=== PATIENT | female | born 1995 | race Hispanic/Latino ===

== ENCOUNTER 2019-05-09 21:21 | Emergency (ER) | payer OTHER ==
[~2019-05-09] VITALS: Ht 157.5 cm; Wt 66.7 kg
--- OUTSIDE RECORDS SUMMARY | 2019-05-09 21:24 | XMS REPORT ---
Author Author [facility] Address Unknown Phone Unavailable Care Team Providers Care Service Dismantler Name Role Phone Unavailable Unavailable Payers Payer Name Policy Type Policy Number Effective Date Expiration Date Problems This patient has no known problems. Allergies, Adverse Reactions, Alerts Allergy Name Allergy Type Status Severity Reaction(s) Onset Date Inactive Date Treating Clinician Comments No Known Allergies DA Active U 2019-05-05 00:00:00 Medications This patient has no known medications. Results Test Description Test Time Test Comments Text Results Atomic Results Result Comments BASIC METABOLIC PANEL 2019-05-06 00:34:00 SODIUM (test code=NA) 138 mmol/L 136-145 POTASSIUM (test code=K) 4.0 mmol/L 3.5-5.1 CHLORIDE (test code=CL) 103.0 mmol/L 98-107 CARBON DIOXIDE (test code=CO2) 27.0 mmol/L 21-32 ANION GAP (test code=GAP) 12.0 10-20 GLUCOSE (test code=GLU) 124 mg/dL 74-106 BLOOD UREA NITROGEN (test code=BUN) 8 mg/dL 7-18 GLOMERULAR FILTRATION RATE (test code=GFR) > 60 mL/min >=60 Estimated GFR by using Modified MDRD formula.Chronic kidney disease is defined as either kidney damageor GFR <60 mL/min/1.73 m2 for >3 months. CREATININE (test code=CREAT) 0.60 mg/dL 0.55-1.02 Note change in reference range due to change in reagent. BUN/CREATININE RATIO (test code=BUN/CREA) 13.0 10-20 CALCIUM (test code=CA) 9.3 mg/dL 8.5-10.1 HCG SERUM [id number] 00:34:00* Test Item Value Reference Range Comments HCG SERUM BETA (test code=HCG) 10096.0 mIU/mL 0-3 Interfering substances present in the serum of somepatients may cause a false-positive result in this assay.Questionable elevations in serum hCG should be confirmedwith a urine hCG. Suspected Trophoblastic Neoplasms shouldnot be diagnosed based on serun hCG/beta hCG alone. Theymust be confirmed by clinical history and tissue diagnosis.INTERPRETATION:B-HCG LEVELS <5 SHOULD BE CONSIDERED "NEGATIVE." *WHEN BODERLINE RESULTS ARE ENCOUNTERED,PATIENT SAMPLESSHOULD BE REDRAWN 48 HOURS. 0-1 WEEKS AFTER CONCEPTION 5-50 MIU/ML1-2 WEEKS AFTER CONCEPTION 50-500 MIU/ML2-3 WEEKS AFTER CONCEPTION 100 -5,000 MIU/ML3-4 WEEKS AFTER CONCEPTION 500-10,000 MIU/ML4-5 WEEKS AFTER CONCEPTION 1000 -50,000 MIU/ML5-6 WEEKS AFTER CONCEPTION 10,000-100,000 MIU/ML6-8 WEEKS AFTER CONCEPTION 15,000- 200,000 MIU/ML2-3 MONTHS AFTER CONCEPTION 10,000-100,000 MIU/ML - DUP AB/PEL/SC [id number] 23:34:00 Name: NATALIIA MUNOZ [facility] : 1995 Age/S: 24 / F [address] [facility] Unit #: [id number] Loc: [place] [address] Phys: Yariel Hunter SOFTWARE VERIFICATION ENGINEER Acct: [id number] Dis Date: Status: REG ER PHONE #: [phone] Exam Date: 05/05/2019 2300 FAX #: [phone] Reason: PELVIC PAIN EXAMS: CPT CODE: [id number] DUP AB/PEL/SC COMP 13283 HISTORY: Vaginal bleeding Location: C3 FINDINGS: Transabdominal and transvaginal pelvic ultrasound images are provided. Doppler interrogation of pelvic structures was performed with color flow, grayscale, and spectral analysis. There is asymmetry in demonstrated measuring 7 weeks 6 days. cardiac activity is present heart rate of 166. Left ovary is demonstrated with normal ovarian flow. The right ovary is not visualized. Small amount of free fluid is noted posteriorly. IMPRESSION: 1. 7 week 6 day intrauterine with normal cardiac activity. 2. Nonvisualization of the right ovary. at 2334 Reported and signed by: Eleazar Ruby MD CC: Evelina Santoro MD; Yariel Hunter NP Technologist: MALI MCBRIDE RDMS Trnscb Date/Time: 05/05/2019 (233) [email or web address] Orig Print D/T: S: 05/05/2019 (2337) Probe: PAGE 1 Signed Report - US PREG 1ST TRIMTR 2019-05-05 23:34:00 Name: NATALIIA MUNOZ [facility] : 1995 Age/S: 24 / F [address] Unit #: [id number] Loc: [place] [address] Phys: Yariel Hunter NP Acct: [id number] Dis Date: Status: REG ER PHONE #: [phone] Exam Date: 05/05/2019 230 FAX #: [phone] Reason: VAGINAL BLEEDING/PELVIC PAIN EXAMS: CPT CODE: [id number] US PREG 1ST TRIMTR 33421 HISTORY: Vaginal bleeding Location: C3 FINDINGS: Transabdominal and transvaginal pelvic ultrasound images are provided. Doppler interrogation of pelvic structures was performed with color flow, grayscale, and spectral analysis. There is asymmetry in demonstrated measuring 7 weeks 6 days. cardiac activity is present heart rate of 166. Left ovary is demonstrated with normal ovarian flow. The right ovary is not visualized. Small amount of free fluid is noted posteriorly. IMPRESSION: 1. 7 week 6 day intrauterine with normal cardiac activity. 2. Nonvisualization of the right ovary. at 2334 Reported and signed by: Eleazar Ruby MD CC: Evelina Santoro MD; Yariel Hunter NP Technologist: MALI MCBRIDE RDMS Trnscb Date/Time: 05/05/2019 (2334) [email or web address] Orig Print D/T: S: 05/05/2019 (2337) Probe: PAGE 1 Signed Report - US PREG UT [id number] 23:34:00 Name: NATALIIA MUNOZ [facility] : 1995 Age/S: 24 / F [address] Unit #: [id number] Loc: [place] [address] Phys: Yariel Hunter SOFTWARE VERIFICATION ENGINEER Acct: [id number] Dis Date: Status: REG ER PHONE #: [phone] Exam Date: 05/05/2019 2308 FAX #: [phone] Reason: PELVIC PAIN EXAMS: CPT CODE: [id number] US PREG UT TRANSVAGINAL 02623 HISTORY: Vaginal bleeding Location: C3 FINDINGS: Transabdominal and transvaginal pelvic ultrasound images are provided. Doppler interrogation of pelvic structures was performed with color flow, grayscale, and spectral analysis. There is asymmetry in demonstrated measuring 7 weeks 6 days. cardiac activity is present heart rate of 166. Left ovary is demonstrated with normal ovarian flow. The right ovary is not visualized. Small amount of free fluid is noted posteriorly. IMPRESSION: 1. 7 week 6 day intrauterine with normal cardiac activity. 2. Nonvisualization of the right ovary. at 2334 Reported and signed by: Eleazar Ruby MD CC: Evelina Santoro MD; Yariel Hunter NP Technologist: MALI MCBRIDE RDMS Trnscb Date/Time: 05/05/2019 (3007) [email or web address] Orig Print D/T: S: 05/05/2019 (8841) Probe: [id number] PAGE 1 Signed Report BASIC METABOLIC PANEL 2019-05-05 23:29:00* Test Item Value Reference Range Comments SODIUM (test code=NA) 138 mmol/L 136-145 POTASSIUM (test code=K) 4.0 mmol/L 3.5-5.1 CHLORIDE (test code=CL) 103.0 mmol/L 98-107 CARBON DIOXIDE (test code=CO2) 27.0 mmol/L 21-32 ANION GAP (test code=GAP) 12.0 10-20 GLUCOSE (test code=GLU) 124 mg/dL 74-106 BLOOD UREA NITROGEN (test code=BUN) 8 mg/dL 7-18 GLOMERULAR FILTRATION RATE (test code=GFR) > 60 mL/min >=60 Estimated GFR by using Modified MDRD formula.Chronic kidney disease is defined as either kidney damageor GFR <60 mL/min/1.73 m2 for >3 months. CREATININE (test code=CREAT) 0.60 mg/dL 0.55-1.02 Note change in reference range due to change in reagent. BUN/CREATININE RATIO (test code=BUN/CREA) 13.0 10-20 CALCIUM (test code=CA) 9.3 mg/dL 8.5-10.1 HCG SERUM [id number] 23:29:00* Test Item Value Reference Range Comments HCG SERUM BETA (test code=HCG) mIU/mL 0-3 URINALYSIS [id number] 23:18:00* Test Item Value Reference Range Comments UA COLOR (test code=COLU) COLORLESS YELLOW UA APPEARANCE (test code=APPU) CLEAR CLEAR UA GLUCOSE DIPSTICK (test code=DGLUU) NEGATIVE mg/dL NEGATIVE UA BILIRUBIN DIPSTICK (test code=BILU) NEGATIVE mg/dL NEGATIVE UA KETONE DIPSTICK (test code=KETU) NEGATIVE mg/dL NEGATIVE UA SPECIFIC GRAVITY (test code=SGU) 1.004 1.001-1.035 UA BLOOD DIPSTICK (test code=HORTENSIA) Negative mg/dL NEGATIVE UA PH DIPSTICK (test code=EVE) 6.5 5.0-8.0 UA PROTEIN DIPSTICK (test code=PROU) NEGATIVE mg/dL NEGATIVE UA UROBILINIOGEN DIPSTICK (test code=URO) Normal mg/dL NEGATIVE UA NITRITE DIPSTICK (test code=[place]) NEGATIVE NEGATIVE UA LEUKOCYTE ESTERASE W REFLEX (test code=LEUUR) NEGATIVE Seven/uL NEGATIVE UA WBC (test code=WBCU) 0-5 per HPF 0-5 UA RBC (test code=RBCU) 0-3 #/HPF 0-5 UA EPITHELIAL CELLS (test code=EPIU) FEW per HPF FEW UA BACTERIA (test code=BACU) FEW #/HPF NONE Urine Source? Clean CatchURINALYSIS [id number] 23:08:00* Test Item Value Reference Range Comments UA COLOR (test code=COLU) COLORLESS YELLOW UA APPEARANCE (test code=APPU) CLEAR CLEAR UA GLUCOSE DIPSTICK (test code=DGLUU) NEGATIVE mg/dL NEGATIVE UA BILIRUBIN DIPSTICK (test code=BILU) NEGATIVE mg/dL NEGATIVE UA KETONE DIPSTICK (test code=KETU) NEGATIVE mg/dL NEGATIVE UA SPECIFIC GRAVITY (test code=SGU) 1.004 1.001-1.035 UA BLOOD DIPSTICK (test code=OHRTENSIA) Negative mg/dL NEGATIVE UA PH DIPSTICK (test code=EVE) 6.5 5.0-8.0 UA PROTEIN DIPSTICK (test code=PROU) NEGATIVE mg/dL NEGATIVE UA UROBILINIOGEN DIPSTICK (test code=URO) Normal mg/dL NEGATIVE UA NITRITE DIPSTICK (test code=[place]) NEGATIVE NEGATIVE UA LEUKOCYTE ESTERASE W REFLEX (test code=LEUUR) NEGATIVE Seven/uL NEGATIVE UA WBC (test code=WBCU) 0-5 per HPF 0-5 UA RBC (test code=RBCU) #/HPF 0-5 UA EPITHELIAL CELLS (test code=EPIU) FEW per HPF FEW UA BACTERIA (test code=BACU) FEW #/HPF NONE Urine Source? Clean CatchBASIC METABOLIC [id number] 23:05:00* Test Item Value Reference Range Comments SODIUM (test code=NA) 138 mmol/L 136-145 POTASSIUM (test code=K) 4.0 mmol/L 3.5-5.1 CHLORIDE (test code=CL) 103.0 mmol/L 98-107 CARBON DIOXIDE (test code=CO2) mmol/L 21-32 ANION GAP (test code=GAP) 10-20 GLUCOSE (test code=GLU) mg/dL 74-106 BLOOD UREA NITROGEN (test code=BUN) mg/dL 7-18 GLOMERULAR FILTRATION RATE (test code=GFR) mL/min >=60 CREATININE (test code=CREAT) mg/dL 0.55-1.02 BUN/CREATININE RATIO (test code=BUN/CREA) 10-20 CALCIUM (test code=CA) mg/dL 8.5-10.1 HCG SERUM [id number] 23:05:00* Test Item Value Reference Range Comments HCG SERUM BETA (test code=HCG) mIU/mL 0-3 CBC W/O [id number] 22:58:00* Test Item Value Reference Range Comments WHITE BLOOD CELL (test code=WBC) 12.8 K/mm3 4.5-12.5 RED BLOOD CELL (test code=RBC) 4.26 mill/mm3 3.7-5.2 HEMOGLOBIN (test code=HGB) 12.3 gram/dL 11.5-15.5 HEMATOCRIT (test code=HCT) 38.0 % 36.0-46.0 MEAN CELL VOLUME (test code=MCV) 89.2 fL 80-98 MEAN CELL HGB (test code=MCH) 28.9 picogram 27.0-33.0 MEAN CELL HGB CONCETRATION (test code=MCHC) 32.4 gram/dL 33.0-36.0 RED CELL DISTRIBUTION WIDTH (test code=RDW) 12.2 % 11.6-16.2 PLATELET COUNT (test code=PLT) 284 K/mm3 150-450 MEAN PLATELET VOLUME (test code=MPV) 10.6 fL 6.7-11.0
[2019-05-09] MEDS ORDERED: SODIUM CHLORIDE 0.9% 1000ML 1,000 ML IV STA (21:37)
[2019-05-09] MEDS ORDERED: ONDANSETRON HCL INJ 2MG/ML 2ML 2 MG/ML VIAL IV NR (22:00)
[2019-05-09 23:35] LABS: BASOPHILS % 0.3 % (0.0-1.0); EOSINOPHILS # (AUTO) 0.1 (0.0-0.4); EOSINOPHILS % 0.6 % (0.0-6.0); HEMATOCRIT 37.3 % (34.2-44.1); HEMOGLOBIN 12.4 g/dL (12.0-16.0); LYMPHOCYTES # (AUTO) 2.6 (1.0-3.2); LYMPHOCYTES % 19.7 % (18.0-39.1); MEAN CORPUSCULAR HEMOGLOBIN 28.9 pg (28-32); MEAN CORPUSCULAR HGB CONC 33.2 g/dL (31-35); MEAN CORPUSCULAR VOLUME 86.9 fL (81-99); MONOCYTES % 7.4 % (4.4-11.3); NEUTROPHILS # (AUTO) 9.4 (2.1-6.9); NEUTROPHILS % 71.6 % (38.7-80.0); PLATELET COUNT 274 x10e3/uL (140-360); RED BLOOD COUNT 4.29 x10e6/uL (3.6-5.1); RED CELL DISTRIBUTION WIDTH 12.3 % (11.7-14.4)
[2019-05-09 23:59] LABS: CLARITY,URINE CLOUDY (CLEAR); COLOR,URINE YELLOW (YELLOW); LEUKOCYTE ESTERASE ,URINE NEGATIVE (NEGATIVE); NITRITE,URINE NEGATIVE (NEGATIVE); PROTEIN,URINE DIPSTICK TRACE (NEGATIVE)
[2019-05-10] LABS: BACTERIA,URINE FEW /HPF; BILIRUBIN,URINE NEGATIVE (NEGATIVE); EPITHELIAL CELLS,URINE RARE /LPF; KETONES,URINE NEGATIVE (NEGATIVE); MUCUS,URINE MANY (RARE); RBC,URINE 0-5 /HPF (0-5); URINE UROBILINOGEN 0.2 mg/dL (0.2 - 1); WBC,URINE (MAN) 0-5 /HPF (0-5)
[2019-05-10 00:14] LABS: ALANINE AMINOTRANSFERASE 42 IU/L (0-55); ALBUMIN 4.1 g/dL (3.5-5.0); ALBUMIN/GLOBULIN RATIO 1.1 (0.8-2.0); ALKALINE PHOSPHATASE 57 IU/L (40-150); ANION GAP 16.5 mmol/L (8-16); BLOOD UREA NITROGEN 7 mg/dL (7-26); BUN/CREATININE RATIO 11 (6-25); CALCIUM 10.5 mg/dL (8.4-10.2); CARBON DIOXIDE 21 mmol/L (22-29); CHLORIDE 103 mmol/L (98-107); CREATININE, SERUM 0.66 mg/dL (0.57-1.11); EST GLOMERULAR FILTRATION RATE > 60 ML/MIN (60-); GLUCOSE 73 mg/dL (74-118); POTASSIUM 3.5 mmol/L (3.5-5.1); SODIUM 137 mmol/L (136-145)
[2019-05-10 00:37] LABS: HCG,QUANTITATIVE 116429.19 mIU/mL (0-10)
[2019-05-10 01:13] VITALS: BP 116/70
== END 2019-05-10 01:18 | disposition home or self-care (01) ==
LOC: ER 21:21
DX: R07.89 Other chest pain (principal); R11.2 Nausea with vomiting, unspecified; F41.9 Anxiety disorder, unspecified; K21.9 Gastro-esophageal reflux disease without esophagitis
CPT/HCPCS: 36415; 80053; 81001; 84702; 85025; 87086; 93005; 99284; J2405; J7030

== ENCOUNTER 2022-03-31 01:30 | Emergency (ER) | payer OTHER ==
[~2022-03-31] VITALS: Ht 157.5 cm; Wt 66.7 kg
[2022-03-31] MEDS ORDERED: IBUPROFEN 600 MG TAB PO STA (03:27)
[2022-03-31] MEDS ORDERED: CEPHALEXIN 500 MG CAP PO ONE (03:30)
[2022-03-31] MEDS ORDERED: CEPHALEXIN500 MG PO (03:31)
[2022-03-31] MEDS ORDERED: IBUPROFEN600 MG PO (03:32)
[2022-03-31] MEDS ORDERED: CEPHALEXIN MONOHYDRATE 250 MG CAP ONE (03:42)
[2022-03-31] MEDS ORDERED: IBUPROFEN 600 MG TAB ONE (03:42)
== END 2022-03-31 03:57 | disposition home or self-care (01) ==
LOC: FSED 01:37
DX: S91.214A Laceration without foreign body of right lesser toe(s) with damage to nail, initial encounter (principal); S92.531A Displaced fracture of distal phalanx of right lesser toe(s), initial encounter for closed fracture; W22.03XA Walked into furniture, initial encounter; Y93.83 Activity, rough housing and horseplay; Y92.018 Other place in single-family (private) house as the place of occurrence of the external cause
CPT/HCPCS: 99284

== ENCOUNTER 2022-11-16 18:31 | Emergency (ER) | payer OTHER ==
[~2022-11-16] VITALS: Ht 157.5 cm; Wt 66.7 kg
[~2022-11-16 18:31] MED LIST: CEPHALEXIN500 MG PO; IBUPROFEN600 MG PO
== END 2022-11-16 20:32 | disposition home or self-care (01) ==
LOC: FSED 18:38
DX: R20.0 Anesthesia of skin (principal); R20.2 Paresthesia of skin; K21.9 Gastro-esophageal reflux disease without esophagitis; F41.9 Anxiety disorder, unspecified
CPT/HCPCS: 70450; 71046; 93005; 99283

== ENCOUNTER 2024-02-20 20:07 | Emergency (ER) | payer OTHER ==
[~2024-02-20] VITALS: Ht 154.9 cm; Wt 83.6 kg
[~2024-02-20 20:07] MED LIST changes: +FIORICET 50-301 EACH PO; +ONDANSETRON ODT4 MG SL
[2024-02-20] MEDS: SODIUM CHLORIDE 0.9% 1000ML 1,000 ML IV STA (22:00)
[2024-02-20] MEDS: ACETAMINOPHEN 325 MG TAB PO ONE (22:00)
[2024-02-20] MEDS: ONDANSETRON HCL INJ 2MG/ML 2ML 2 MG/ML VIAL IV STA (22:01)
[2024-02-20] MEDS: KETOROLAC TROMETHAMINE 30 MG/ML VIAL IV STA (22:01)
[2024-02-20 23:04] VITALS: PULSE 80; RESP 16; TEMP 99.1; O2SAT 98
[2024-02-20] MEDS ORDERED: ONDANSETRON ODT4 MG PO (23:13)
== END 2024-02-20 23:26 | disposition home or self-care (01) ==
LOC: FSED 20:23
DX: J06.9 Acute upper respiratory infection, unspecified (principal); B97.89 Other viral agents as the cause of diseases classified elsewhere; K21.9 Gastro-esophageal reflux disease without esophagitis; F41.9 Anxiety disorder, unspecified; G43.909 Migraine, unspecified, not intractable, without status migrainosus; Z11.52 Encounter for screening for COVID-19
CPT/HCPCS: 0223U; 80053; 81003; 81025; 85025; 87400; 99284; J2405; J7030